=== PATIENT | male | born 1960 | race Caucasian/White ===

== ENCOUNTER 2017-01-19 21:43 | Inpatient (IN) ==
[2017-01-19 23:06] LABS: Basophils # (Auto) 0.1 K/mcL (0.0-0.3); Basophils % (Auto) 0.4 % (0.0-2.0); Eosinophils # (Auto) 0.4 K/mcL (0.0-0.7); Granulocytes % (Auto) 78.1 % (38.0-78.0); Lymphocytes % (Auto) 8.1 % (15.5-49.0); Mean Corpuscular HGB Conc 32.8 g/dL (31.0-36.0); Mean Corpuscular Hemoglobin 30.2 pg (26.0-34.0); Monocytes # (Auto) 1.3 K/mcL (0.1-0.9); Monocytes % (Auto) 10.4 % (1.0-12.0); Platelet Count 232 K/mcL (140-440); RBC 5.01 M/mcL (4.50-5.90); Red Cell Distribution Width 15.4 % (11.5-14.5)
[2017-01-19] MEDS ORDERED: VANCOMYCIN 1,000 MG in 0.9 % SODIUM CHLORIDE 250 ML IV ONE (23:09)
[2017-01-19] MEDS ORDERED: ceFAZolin 1 GM VIAL IV ONE (23:09)
[2017-01-19 23:28] LABS: ALT/SGPT 61 U/l (0-40); Albumin 3.3 gm/dL (3.2-5.2); Albumin/Globulin Ratio 0.9 (1.0-2.3); Alkaline Phosphatase 116 U/L (39-117); Blood Urea Nitrogen 16 mg/dl (6-20)
[2017-01-19] MEDS ORDERED: ACETAMINOPHEN 325 MG TABLET PO PRN (23:43)
[2017-01-19] MEDS ORDERED: ONDANSETRON 4 MG/2 ML VIAL IV PRN (23:43)
[2017-01-19] MEDS ORDERED: NALOXONE HCL 0.4 MG/ML VIAL IV PRN (23:43)
[2017-01-19] MEDS ORDERED: oxyCODONE/APAP 5/325MG TABLET PO PRN (23:43)
[2017-01-19] MEDS ORDERED: 0.9 % SODIUM CHLORIDE 1,000 ML IV SCH (23:45)
[2017-01-19] MEDS ORDERED: VANCOMYCIN PER PHARMACY IV ONE (23:47)
--- NOTE | 2017-01-19 23:50 | Emergency Department Note ---
General Adult HPI - General Chief complaint: Wound/Laceration Stated complaint: hip wound Time Seen by Provider: 01/19/17 22:02 Source: patient Mode of arrival: ambulatory Limitations: no limitations - History of Present Illness HPI Narrative: 56-year-old male comes in with purulent drainage from the scar from recent prostatic replacement on the right, burning pain at same location. He does have a prior history of cellulitis in this region that resolved with antibiotics. This episode started with him moving tires 5 days ago and accidentally hitting his right hip with a tire. Since then he's had general malaise and a fever up to 102. Some mildly loose stool. Decreased appetite but no shortness of breath - Related Data Home Medications Medication Instructions Recorded Confirmed Benazepril [Lotensin] 20 mg PO DAILY 09/05/15 01/20/17 Levothyroxine Sodium [Levoxyl] 200 mcg PO DAILY 09/05/15 01/20/17 Methocarbamol [Robaxin] 1,000 mg PO TIDP PRN 09/05/15 09/24/16 Naproxen 500 mg PO BID 09/05/15 09/24/16 Aspirin [Ecotrin] 325 mg PO DAILY 09/11/16 01/20/17 Multivitamin [Multivitamins] 1 tab PO DAILY 09/11/16 09/24/16 Vitamin D3 5,000 unit PO DAILY 09/11/16 09/24/16 Previous Rx's Medication Instructions Recorded Acetaminophen [Tylenol] 650 mg PO Q4-6HP PRN #0 tablet 09/17/15 Docusate Sodium [Colace] 100 mg PO BID capsule 09/17/15 HYDROcodone/APAP 10/325MG [[place] 1 - 2 tab PO Q4HP PRN #60 tablet 09/15/16 10/325Mg] Clindamycin HCl [Cleocin] 300 mg PO TID #30 capsule 09/24/16 Allergies Allergy/AdvReac Type Severity Reaction Status Date / Time No Known Drug Allergies Allergy Verified 01/19/17 21:49 Review of Systems All systems ED: reviewed and negative except as stated. Past Medical History - Past Medical History Attestation: Yes: The following information was validated with the patient. Medical history: Reports: hypertension, thyroid disease Surgical history ED: Reports: hip replacement, orthopedic, other (back surgery x3, cervical spine surgery) - Social History smoking status: Former smoker Physical Exam Obese male no acute distress. Normocephalic atraumatic. Conjunctiva clear sclerae anicteric. No nasal discharge or congestion. Oropharynx pink and moist. Neck supple. Heart is regular rate and rhythm no murmurs appreciated. Lungs are clear to auscultation bilaterally without wheezes rales rhonchi or respiratory distress. No pedal edema. +2 radial pulse. Exam of the right hip shows a 10 cm x 38 cm tender red area demarcated by marker, surrounding previous hip replacement scar. About one third [address] way inferior to the top of the scar there is purulent drainage oozing. I did culture this and the Q- tip went down over 8 cm deep- it did not touch the hip. There is a deep abscess there. He is able to move his knees and legs. he also has a small ecchymoses on the middle of his right buttock - General Limitations: no limitations Course Vital Signs Temperature 98.4 F 01/19/17 21:44 Pulse Rate 86 01/19/17 21:44 Respiratory Rate 26 H 01/19/17 21:44 Blood Pressure 132/73 01/19/17 21:44 Pulse Oximetry (%) 95 01/19/17 21:44 Temperature 98.4 F 01/20/17 00:38 Pulse Rate 86 01/20/17 00:38 Respiratory Rate 26 H 01/20/17 00:38 Blood Pressure 132/73 01/20/17 00:38 Pulse Oximetry (%) 95 01/20/17 00:38 Medical Decision Making - Lab Data Lab results reviewed: Yes I reviewed the patient's lab results. Result diagrams: 01/19/17 22:13 01/19/17 22:26 Lab Results 01/19/17 01/19/17 01/19/17 Range/Units 22:13 22:26 22:26 WBC 12.6 H (4.5-11.0) K/mcL RBC 5.01 (4.50-5.90) M/mcL Hgb 15.1 (13.5-16.5) g/dL Hct 46.1 (41.0-55.0) % MCV 92.0 (80.0-100.0) fL MCH 30.2 (26.0-34.0) pg MCHC 32.8 (31.0-36.0) g/dL RDW 15.4 H (11.5-14.5) % Plt Count 232 (140-440) K/mcL MPV 8.8 (7.4-10.4) fL Gran % 78.1 H (38.0-78.0) % Lymph % (Auto) 8.1 L (15.5-49.0) % [place] % (Auto) 10.4 (1.0-12.0) % Eos % (Auto) 3.0 (0.0-7.0) % Baso % (Auto) 0.4 (0.0-2.0) % Gran # 9.8 H (1.8-8.0) K/mcL Lymph # 1.0 L (1.5-4.8) K/mcL [place] # 1.3 H (0.1-0.9) K/mcL Eos # 0.4 (0.0-0.7) K/mcL Baso # 0.1 (0.0-0.3) K/mcL VBG Lactic Acid 0.9 (0.5-2.2) mmol/L Sodium 139 (133-145) mmol/L Potassium 3.4 (3.3-5.1) mmol/L Chloride 100 (96-108) mmol/L Carbon Dioxide 21 L (22-30) mmol/L Anion Gap 18.0 H (8-16) BUN 16 (6-20) mg/dl Creatinine 1.1 (0.7-1.2) mg/dl GFR Calculation 74 Glucose 112 H (70-105) mg/dL Calcium 8.6 (8.6-10.4) mg/dl Total Bilirubin 0.4 (0.0-1.0) mg/dL AST 45 H (0-37) U/l ALT 61 H (0-40) U/l Alkaline Phosphatase 116 (39-117) U/L Total Protein 7.1 (5.9-8.4) gm/dL Albumin 3.3 (3.2-5.2) gm/dL Globulin 3.8 H (2.2-3.7) gm/dL Albumin/Globulin Ratio 0.9 L (1.0-2.3) Disposition Clinical Impression: Abscess H/O total hip arthroplasty Qualifiers: Laterality: right Qualified Code(s): Z96.641 - Presence of right artificial hip joint Summary: Initially cultured and treated with antibiotics- start vancomycin and Ancef. Ordered laboratory workup and CT scan of the hip without contrast I discussed the scenario with Dr. Wolf who is on-call for Dr. Ferrera the patient's orthopedist. He agreed to accept the patient for further care and probable surgical irrigation and debridement tomorrow. He asked me to write holding orders for tonight and he would see him in the morning Patient is admitted to Dr. Wolf Disposition: Xfer As Inpt ([facility]) Condition: Good
[2017-01-20] MEDS: ceFAZolin 1 GM VIAL IV SCH ×4 (01:32→23:18)
[2017-01-20] MEDS ORDERED: VANCOMYCIN PER PHARMACY IV SCH (07:30)
[2017-01-20] MEDS: LEVOTHYROXINE 150 MCG TABLET PO SCH (07:40)
--- NOTE | 2017-01-20 08:14 | History and Physical Report ---
DATE OF ADMISSION: 01/20/2017 IDENTIFICATION: This is a 56-year-old male. CHIEF COMPLAINT: Right hip infection. HISTORY: This is a gentleman who had a total hip arthroplasty done in early August by Dr. Grey Ferrera. He apparently did well with surgical treatment, and really, the surgery was uneventful. Apparently, at about [place], he developed a low-grade infection with cellulitis. This was treated with antibiotics and resolved. He reports to have been doing very well without pain or disability until quite recently. On Saturday, he developed an acute febrile illness, and then Saturday and Saturday, developed some vague tightness in the hip. He was loading some tires from his 's car and apparently bumped the hip and felt that he had maybe just scuffed the skin. He then on Saturday, developed progressive increasing tightness, when this apparently broke open and drained a fairly abundant amount of purulent material. He presented to the emergency room complaining of increased discomfort and tightness in the hip with active drainage. PAST MEDICAL HISTORY: Hypertension and hypothyroidism. PAST SURGICAL HISTORY: He has had previous total hip arthroplasty. He has had previous cervical spine surgery and lumbar surgeries, to include a decompression and fusion. MEDICATIONS: Lotensin. Thyroid supplement. Robaxin. Daily aspirin. Vitamin D3. Multivitamin. ALLERGIES: NONE. REVIEW OF SYSTEMS: He denies any acute changes in past medical history other than this febrile illness that he had on Saturday. Other than this, he has been in a generally good state of health. FAMILY HISTORY: His family history is reviewed and does not contribute to this present problem. EXAMINATION: GENERAL: He is awake and alert. He is in no acute distress. He is generally resting comfortably. HEAD: Normocephalic, atraumatic. EYES: PERRLA, conjunctive clear. ENT: Within normal limits. HEART: Regular. LUNGS: Clear. ABDOMEN: Benign. EXTREMITIES: His right lower extremity is comfortably positioned. He does not have any excess pain with range of motion. His leg lengths are symmetric and he is neurovascularly without deficit bilaterally. He does clearly have a cellulitis surrounding the incision. There is deep erythema. There are several small focal areas along the incision line which are draining. The patient is actively afebrile. He does have a low-grade white count of 12.6. A sedimentation rate and C-reactive protein will be added to his labs. IMPRESSION: Right hip infection. This is involving a total hip arthroplasty. This clearly does need to be treated with surgical irrigation and debridement. Whether or not we need to do a 2-stage revision is still somewhat of a contreras area. The gentleman has had this prosthesis for less than six months and has had the infection for a very short period of time, less than a week. It may be reasonable to try and salvage the prosthesis with a simple irrigation and debridement. This was discussed with the patient. Will plan to proceed to the operating room. GDD:lyn Job ID: [id number] Doc ID: [id number] Humphrey Wolf MD
[2017-01-20] MEDS ORDERED: VANCOMYCIN 1,500 MG in 0.9 % SODIUM CHLORIDE 500 ML IV SCH (09:00)
[2017-01-20] MEDS: LISINOPRIL 20 MG TABLET PO SCH (09:03)
--- NOTE | 2017-01-20 09:33 | Cat Scan Report ---
CLINICAL INFORMATION: Hip abscess. History of total hip prostheses four months prior COMPARISON: Postoperative plain film from 09/14/2016 TECHNIQUE: 2.5 mm helical slices were obtained the iliac crest through the mid femoral diaphysis. Following reconstruction, sagittal, coronal axial reformatted images were processed and reviewed in bone and soft tissue window. FINDINGS: ] Prostheses is anatomically aligned without evidence of loosening or infection. There is no evidence of effusion in the right hip. There is no evidence of osteomyelitis or other significant osseous abnormality. Chronic osteitis pubis incidentally noted. There is a large (10 cm) gas containing fluid collection in the subcutaneous fat with extension into the gluteal musculature of the right hip. It is suspicious for abscess. The fluid extends to, but does not appear to involve , the the right greater trochanteric cortex IMPRESSION: Large (10 cm) fluid collection in the soft tissues over the right hip involving subcutaneous fat and gluteal musculature. Although it extends to the greater trochanteric cortex, there is no CT evidence of osteomyelitis. Suspect a large soft tissue abscess Right hip prostheses anatomically aligned without loosening or infection. Interpreted and Authenticated by: Memo Duran 01/20/17
--- NOTE | 2017-01-20 09:45 | XRay Report ---
CLINICAL INFORMATION: Right hip infection COMPARISON: CT 01/20/2017 FINDINGS: Bilateral hip prostheses are anatomically aligned without evidence of loosening or infection. Osteitis pubis noted otherwise, but no significant osseous abnormality. There is no specific evidence for osteomyelitis. The soft tissue swelling over the right hip represents an abscess described on the accompanying CT IMPRESSION: Bilateral hip prostheses are anatomically aligned. There is no evidence of septic arthritis or osteomyelitis. Soft tissue swelling over the the right greater trochanter correlates with a 10 cm soft tissue abscess - better seen on CT Interpreted and Authenticated by: Memo Duran 01/20/17
[2017-01-20] MEDS ORDERED: GENTAMICIN SULFATE 800 MG/20 ML VIAL IR ONE (09:52)
[2017-01-20] MEDS ORDERED: fentaNYL 100 MCG/2 ML VIAL IV ONE (10:19)
[2017-01-20] MEDS ORDERED: ePHEDrine 50 MG/ML AMPUL IV ONE (10:19)
[2017-01-20] MEDS ORDERED: SUCCINYLCHOLINE 20 MG/ML ML IV ONE (10:19)
[2017-01-20] MEDS ORDERED: PROPOFOL 200 MG/20 ML VIAL IV ONE (10:19)
[2017-01-20] MEDS ORDERED: DEXAMETHASONE 10 MG/ML VIAL ONE (10:19)
[2017-01-20] MEDS ORDERED: LIDOCAINE HCL/PF 100 MG/5 ML SYRINGE IV ONE (10:19)
[2017-01-20] MEDS ORDERED: ONDANSETRON 4 MG/2 ML VIAL ONE (10:19)
[2017-01-20] MEDS ORDERED: KETOROLAC 60 MG/2 ML VIAL IM ONE (10:19)
[2017-01-20] MEDS ORDERED: ROCURONIUM 10 MG/ML ML IV ONE (10:19)
[2017-01-20] MEDS ORDERED: HYDROmorphone 2 MG/ML SYRINGE ONE (10:19)
[2017-01-20] MEDS ORDERED: KETAMINE 10 MG/ML ML ONE (10:19)
[2017-01-20] MEDS ORDERED: PHENYLEPHRINE 10 MG/ML VIAL ONE (10:19)
[2017-01-20] MEDS ORDERED: MIDAZOLAM 5 MG/5 ML VIAL ONE (10:19)
[2017-01-20] MEDS ORDERED: TOBRAMYCIN SULFATE 1.2 GM VIAL TOPICAL ONE (11:02)
[2017-01-20] MEDS ORDERED: VANCOMYCIN 1 GM VIAL TOPICAL SCH (11:15)
[2017-01-20] MEDS ORDERED: HYDROmorphone 2 MG/ML SYRINGE IV PRN (11:31)
[2017-01-20] MEDS ORDERED: diphenhydrAMINE 50 MG/ML VIAL IV PRN (11:31)
[2017-01-20] MEDS ORDERED: NALOXONE HCL 0.4 MG/ML VIAL IV PRN (11:31)
[2017-01-20] MEDS ORDERED: METOCLOPRAMIDE 10 MG/2 ML VIAL IV PRN (11:31)
[2017-01-20] MEDS ORDERED: MEPERIDINE 25 MG/ML SYRINGE IV PRN (11:31)
[2017-01-20] MEDS ORDERED: FLUMAZENIL 0.1 MG/ML ML IV PRN (11:31)
[2017-01-20] MEDS ORDERED: ePHEDrine 50 MG/ML AMPUL IV PRN (11:31)
[2017-01-20] MEDS ORDERED: fentaNYL 100 MCG/2 ML VIAL IV PRN (11:31)
[2017-01-20] MEDS ORDERED: BENZOCAINE/MENTHOL 1 LOZENGE PO PRN ×2 (11:31→12:16)
[2017-01-20] MEDS ORDERED: METHOCARBAMOL 1,000 MG/10 ML VIAL IV PRN (11:31)
[2017-01-20] MEDS ORDERED: IPRATROPIUM/ALBUTEROL 3 ML AMPUL.NEB NEB PRN (11:31)
[2017-01-20] MEDS ORDERED: LACTATED RINGERS 250 ML IV PRN (11:31)
[2017-01-20] MEDS ORDERED: ONDANSETRON 4 MG/2 ML VIAL IV PRN ×2 (11:31→12:16)
[2017-01-20] MEDS ORDERED: LACTATED RINGERS 1,000 ML IV SCH (11:45)
[2017-01-20] MEDS ORDERED: TRANEXAMIC ACID 1,000 MG/10 ML VIAL IV SCH (12:16)
[2017-01-20] MEDS ORDERED: FLEETS ADULT ENEMA PR PRN (12:16)
[2017-01-20] MEDS ORDERED: MAGNESIUM HYDROXIDE 30 ML ORAL.SUSP PO PRN (12:16)
[2017-01-20] MEDS ORDERED: POLYETHYLENE GLYCOL 3350 17 GM PACKET PO PRN (12:16)
[2017-01-20] MEDS ORDERED: METHOCARBAMOL 750 MG TABLET PO PRN (12:16)
[2017-01-20] MEDS ORDERED: BISACODYL 10 MG SUPP.RECT PR PRN (12:16)
--- NOTE | 2017-01-20 12:16 | Brief Operative Note ---
Date of procedure: 01/20/17 Pre-op diagnosis: infected R VANDANA Post-op diagnosis: same Procedure: I and D with liner and head exchange Grafts/Implants: Yes (depuy) Anesthesia: GETA Findings: gross puss Complications: none Surgeon: Humphrey Wolf Hand Funnel Coater: Javid Zhao Estimated blood loss (cc): 300 Specimens Removed/Pathology: other Condition: stable Disposition: PACU
[2017-01-20] MEDS ORDERED: GENTAMICIN PER PHARMACY IV SCH (12:33)
[2017-01-20] MEDS: GENTAMICIN SULFATE IV SCH (14:05)
[2017-01-20] MEDS: SODIUM CHLORIDE 0.9% IV SCH (14:05)
[2017-01-20] MEDS: WARFARIN 5 MG TABLET PO SCH (15:10)
[2017-01-20] MEDS: 0.45 % SODIUM CHLORIDE 1,000 ML IV SCH ×2 (15:11→23:26)
[2017-01-20] MEDS: 0.9 % SODIUM CHLORIDE 10 ML SYRINGE IV SCH ×2 (15:11→23:26)
[2017-01-20] MEDS: DOCUSATE SODIUM 100 MG CAPSULE PO SCH (23:17)
[2017-01-20] MEDS: SENNOSIDES 1 TABLET PO SCH (23:17)
[2017-01-20] MEDS: VANCOMYCIN 1,500 MG in 0.9 % SODIUM CHLORIDE 500 ML IV SCH (23:26)
[2017-01-21] MEDS: 0.45 % SODIUM CHLORIDE 1,000 ML IV SCH ×3 (06:35→22:58)
[2017-01-21] MEDS: 0.9 % SODIUM CHLORIDE 10 ML SYRINGE IV SCH ×3 (06:36→22:18)
--- NOTE | 2017-01-21 07:06 | Orthopedic Progress Note ---
Subjective Patient information: Note initiated : 01/21/17 at 7:05 am Service Date, if different from initiated Date: [] Patient: Naveed Luis 56 y/o M admitted on 01/20/17 for hip wound. Chief Complaint: [] No complaints Objective Vital signs: Vital Signs Temp Pulse Resp BP BP BP Pulse Ox 01/21/17 04:00 97.1 F L 49 L 16 96/52 96 01/21/17 00:57 92 01/21/17 00:00 96.7 F L 54 L 20 100/64 97 01/20/17 20:00 96 01/20/17 19:44 97.5 F L 71 20 103/63 91 01/20/17 17:05 95 01/20/17 16:55 96 01/20/17 16:08 110/77 93 01/20/17 15:20 95 01/20/17 15:05 121/77 94 01/20/17 14:35 99/69 90 01/20/17 14:05 97/64 93 01/20/17 13:50 104/70 90 01/20/17 13:35 101/64 94 01/20/17 13:30 98.0 F 78 18 110/63 93 01/20/17 13:15 75 16 113/65 93 01/20/17 13:00 80 20 118/73 92 01/20/17 12:45 97.9 F 87 14 104/73 95 01/20/17 12:00 96.5 F L 16 101/64 94 Intake and Output 01/20/17 01/21/17 01/21/17 21:59 05:59 13:59 Intake Total 460 / 460 1700 / 1700 Output Total 490 / 490 825 / 825 Balance -30 / -30 875 / 875 Intake: IV 1000 / 1000 Sodium Chloride 0.45% 1, 1000 / 1000 000 ml @ 125 mls/hr IV . Q8H [facility] Rx#:[id number] Oral 460 / 460 700 / 700 Output: Drainage 90 / 90 125 / 125 Right Hip 90 / 90 60 / 60 right hip #1 5 / 5 right hip #2 20 / 20 right hip #3 40 / 40 Void Amount 400 / 400 700 / 700 Other: Meal Dinner Percent of Meal Consumed 100% Feeding Ability Independent Weight 340 lb Intake & Output: Intake & Output 01/20/17 01/21/17 01/21/17 21:59 05:59 13:59 Intake Total 460 / 460 1700 / 1700 Output Total 490 / 490 825 / 825 Balance -30 / -30 875 / 875 Weight 340 lb Intake: IV 1000 / 1000 Sodium Chloride 0.45% 1, 1000 / 1000 000 ml @ 125 mls/hr IV . Q8H [facility] Rx#:[id number] Oral 460 / 460 700 / 700 Output: Drainage 90 / 90 125 / 125 Right Hip 90 / 90 60 / 60 right hip #1 5 / 5 right hip #2 20 / 20 right hip #3 40 / 40 Void Amount 400 / 400 700 / 700 Other: Meal Dinner Percent of Meal Consumed 100% Feeding Ability Independent Dressing: Yes clean, Yes intact Weight bearing status: full - Labs CBC & BMP: 01/21/17 05:00 01/19/17 22:26 Labs: Orthopedic Labs 01/21/17 05:00 PT 15.5 H INR 1.2 H 01/21/17 05:00 Hgb 13.6 Hct 41.6 Assessment and Plan (1) Wound infection awaiting culture and sensitivity. mobilize Status: Acute
[2017-01-21] MEDS: ceFAZolin 1 GM VIAL IV SCH ×2 (07:38→15:55)
[2017-01-21] MEDS: DOCUSATE SODIUM 100 MG CAPSULE PO SCH ×2 (09:19→22:18)
[2017-01-21] MEDS: LEVOTHYROXINE 75 MCG TABLET PO SCH (09:19)
[2017-01-21] MEDS: LEVOTHYROXINE 100 MCG TABLET PO SCH (09:20)
--- NOTE | 2017-01-21 09:27 | Operative Note ---
DATE OF OPERATION: 01/20/2017 PREOPERATIVE DIAGNOSIS: Infected right total hip arthroplasty. POSTOPERATIVE DIAGNOSIS: Infected right total hip arthroplasty. OPERATION PROPOSED: Irrigation and debridement with liner exchange and exchange of the femoral head. OPERATION PERFORMED: Irrigation and debridement with liner exchange and exchange of the femoral head. OPERATING SURGEON: Humphrey Wolf MD TELEGRAPHIC INSTRUMENT SUPERVISOR: Javid Zhao PA-C. INDICATIONS: This is a gentleman, 56 years old who has an infected right total hip arthroplasty. It does seem that this has only been going on for a short period of time. We have elected to proceed with an irrigation and debridement and exchange of the liner and the head ball. OPERATION IN DETAIL: Informed consent was obtained. He was taken to the operating and was prepped anesthetic and prophylactic antibiotics. I did open his previous incision. Extensive irrigation and debridement was performed. I then opened the iliotibial band and there was a marked amount of fluid retained beneath this. It was not quite as contaminated appearing as the superficial material. I extensively irrigated thoroughly and debrided of soft tissues, debrided scar from this wound and then removed the femoral head. The acetabular component was exposed. I debrided soft tissues from around the acetabular component and I then removed the acetabular liner. I extensively lavaged and I then removed the central screw. I curetted each of the screw holes and irrigated additionally. I used additional IrriSept irrigation as well. I exchanged the liner and head ball. This was reduced into place. I closed the iliotibial band over 2 drains with a monofilament suture. A drain was placed in the subcutaneous fat. I closed with a 2-0 inverted and anatoliy. The procedure was tolerated well. No complications. Estimated blood loss is about 300 mL. GDD:sp Job ID: [id number] Doc ID: [id number] Humphrey Wolf MD
[2017-01-21] MEDS: LISINOPRIL 20 MG TABLET PO SCH (09:28)
[2017-01-21] MEDS ORDERED: 0.9 % SODIUM CHLORIDE 10 ML SYRINGE IV PRN (09:51)
[2017-01-21] MEDS: LEVOTHYROXINE 150 MCG TABLET PO SCH (09:55)
[2017-01-21] MEDS: VANCOMYCIN 1,500 MG in 0.9 % SODIUM CHLORIDE 500 ML IV SCH (09:55)
[2017-01-21] MEDS: WARFARIN 5 MG TABLET PO SCH (14:21)
[2017-01-21] MEDS: GENTAMICIN SULFATE IV SCH (16:03)
[2017-01-21] MEDS: SODIUM CHLORIDE 0.9% IV SCH (16:03)
[2017-01-21] MEDS: SENNOSIDES 1 TABLET PO SCH (22:18)
[2017-01-22] MEDS: ceFAZolin 1 GM VIAL IV SCH ×4 (00:36→23:57)
[2017-01-22] MEDS: 0.9 % SODIUM CHLORIDE 10 ML SYRINGE IV SCH ×3 (06:42→23:58)
[2017-01-22] MEDS: 0.45 % SODIUM CHLORIDE 1,000 ML IV SCH ×3 (06:42→22:26)
[2017-01-22] MEDS: LEVOTHYROXINE 100 MCG TABLET PO SCH (07:10)
[2017-01-22] MEDS: LEVOTHYROXINE 75 MCG TABLET PO SCH (07:11)
--- NOTE | 2017-01-22 07:14 | Orthopedic Progress Note ---
Subjective Patient information: Note initiated : 01/22/17 at 7:12 am Service Date, if different from initiated Date: [] Patient: Naveed Luis 56 y/o M admitted on 01/20/17 for Hip Wound/Right Hip Fracture. Chief Complaint: [S/P I&D of right hip wound] Patient reports that he is doing well and has been able to ambulate w/o difficulty. Denies any lower ext weakness, calf tenderness, or SOA. Objective Vital signs: Vital Signs Temp Pulse Pulse Resp BP Pulse Ox 01/22/17 07:06 95 01/22/17 03:16 98.0 F 61 22 125/77 90 01/21/17 23:21 97.8 F 67 22 136/79 94 01/21/17 20:00 98.2 F 67 22 128/72 95 01/21/17 15:49 97.4 F L 62 14 101/67 95 01/21/17 11:36 97.3 F L 62 16 102/64 97 01/21/17 08:00 97.4 F L 61 16 96/61 95 01/21/17 07:21 51 L 12 97 01/21/17 07:20 97 Intake and Output 01/21/17 01/22/17 01/22/17 21:59 05:59 13:59 Intake Total 1590 / 1590 800 / 800 Output Total 1805 / 1805 1898 / 1898 Balance -215 / -215 -1098 / -1098 Intake: IV 1000 / 1000 Sodium Chloride 0.45% 1, 1000 / 1000 000 ml @ 125 mls/hr IV . Q8H [facility] Rx#:[id number] Oral 590 / 590 800 / 800 Output: Drainage 80 / 80 right hip #1 0 / 0 right hip #2 52 / 52 right hip #3 3 / 3 3 / 3 Void Amount 1725 / 1725 1875 / 1875 Other: Meal Dinner Percent of Meal Consumed 100% # Voids 1 # Bowel Movements 1 Weight 341 lb Intake & Output: Intake & Output 01/21/17 01/22/17 01/22/17 21:59 05:59 13:59 Intake Total 1590 / 1590 800 / 800 Output Total 1805 / 1805 1898 / 1898 Balance -215 / -215 -1098 / -1098 Weight 341 lb Intake: IV 1000 / 1000 Sodium Chloride 0.45% 1, 1000 / 1000 000 ml @ 125 mls/hr IV . Q8H [facility] Rx#:[id number] Oral 590 / 590 800 / 800 Output: Drainage 80 / 80 right hip #1 0 / 0 right hip #2 52 / 52 / 20 right hip #3 3 / 3 / Void Amount 1725 / 1725 1875 / 1875 Other: Meal Dinner Percent of Meal Consumed 100% # Voids 1 # Bowel Movements 1 Incision: Yes clean and dry Incision clean and dry: Yes Dressing: Yes clean, Yes dry, Yes intact Weight bearing status: full Neurological exam IM: Yes motor sensory intact, Yes neurovascular intact Extremities exam IM: Yes calf tenderness (Negative), Yes Bentley's sign (Negative bilat) - Labs CBC & BMP: 01/22/17 04:13 01/19/17 22:26 Labs: Orthopedic Labs 01/22/17 01/21/17 04:13 05:00 PT 16.9 H 15.5 H INR 1.3 H 1.2 H 01/22/17 01/21/17 04:13 05:00 Hgb 13.7 13.6 Hct 41.6 41.6 Assessment and Plan (1) Wound infection May ambulate as tolerated. Continue abx. PICC line to be placed today. Awaiting C&S of wound. May d/c drains tomorrow AM. Status: Acute
[2017-01-22 09:07] LABS: Vancomycin,Trough 10.6 ug/ml (5.0-15.0)
[2017-01-22] MEDS: DOCUSATE SODIUM 100 MG CAPSULE PO SCH ×2 (09:19→22:26)
[2017-01-22] MEDS: LISINOPRIL 20 MG TABLET PO SCH (09:19)
--- NOTE | 2017-01-22 09:33 | XRay Report ---
HISTORY: Reason for Exam:picc placement FINDINGS: PICC line has been placed through the right arm. The tip is in the region of the superior vena cava. No pneumothorax or pleural effusion are present. The lungs are clear. The heart size is normal. IMPRESSION: Normal chest and no complication following insertion of a PICC line Interpreted and Authenticated by: Seven Payton 01/22/17
[2017-01-22] MEDS: VANCOMYCIN 1,500 MG in 0.9 % SODIUM CHLORIDE 500 ML IV SCH (10:05)
[2017-01-22] MEDS ORDERED: GENTAMICIN SULFATE IV SCH (12:00)
[2017-01-22] MEDS ORDERED: SODIUM CHLORIDE 0.9% IV SCH (12:00)
[2017-01-22] MEDS: WARFARIN 5 MG TABLET PO SCH (13:31)
[2017-01-22] MEDS: SENNOSIDES 1 TABLET PO SCH (22:26)
[2017-01-23] MEDS: 0.45 % SODIUM CHLORIDE 1,000 ML IV SCH (03:56)
[2017-01-23 06:28] LABS: Basophils # (Auto) 0 K/mcL (0.0-0.3); Basophils % (Auto) 0.4 % (0.0-2.0); Eosinophils # (Auto) 0.3 K/mcL (0.0-0.7); Eosinophils % (Auto) 2.6 % (0.0-7.0); Granulocytes % (Auto) 76.9 % (38.0-78.0); Lymphocytes # (Auto) 1.3 K/mcL (1.5-4.8); Mean Cell Volume 92.5 fL (80.0-100.0); Mean Corpuscular HGB Conc 32.7 g/dL (31.0-36.0); Mean Corpuscular Hemoglobin 30.2 pg (26.0-34.0); Monocytes # (Auto) 0.9 K/mcL (0.1-0.9); Monocytes % (Auto) 8.1 % (1.0-12.0); Platelet Count 367 K/mcL (140-440); Red Cell Distribution Width 15.8 % (11.5-14.5)
[2017-01-23] MEDS: ceFAZolin 1 GM VIAL IV SCH (07:36)
[2017-01-23] MEDS: LEVOTHYROXINE 100 MCG TABLET PO SCH (07:36)
[2017-01-23] MEDS: LEVOTHYROXINE 75 MCG TABLET PO SCH (07:36)
[2017-01-23] MEDS: 0.9 % SODIUM CHLORIDE 10 ML SYRINGE IV SCH ×2 (07:45→14:43)
--- NOTE | 2017-01-23 07:55 | Orthopedic Progress Note ---
Subjective Patient information: Note initiated : 01/23/17 at 7:54 am Service Date, if different from initiated Date: [] Patient: Naveed Luis 56 y/o M admitted on 01/20/17 for Hip Wound/Right Hip Fracture. Chief Complaint: [] Interval history: doing well. no pain Objective Vital signs: Vital Signs Temp Pulse Resp BP Pulse Ox 01/23/17 07:33 94 01/23/17 04:00 97.9 F 65 22 143/78 94 01/23/17 00:00 98.4 F 66 20 131/82 94 01/22/17 19:00 98.2 F 76 22 146/74 93 01/22/17 15:23 97.6 F 67 22 134/89 94 01/22/17 12:00 98.8 F 76 16 114/75 94 Intake and Output 01/22/17 01/23/17 01/23/17 21:59 05:59 13:59 Intake Total 1790 / 1790 350 / 350 Output Total 1795 / 1795 1792 / 1792 Balance -5 / -5 -1442 / -1442 Intake: Oral 1790 / 1790 350 / 350 Output: Drainage 185 / 185 42 / 42 right hip #1 55 / 55 2 / 2 right hip #2 130 / 130 40 / 40 right hip #3 0 / 0 0 / 0 Void Amount 1610 / 1610 1750 / 1750 Other: Meal Dinner Percent of Meal Consumed 100% Feeding Ability Independent Weight 329 lb 6.4 oz Intake & Output: Intake & Output 01/22/17 01/23/17 01/23/17 21:59 05:59 13:59 Intake Total 1790 / 1790 350 / 350 Output Total 1795 / 1795 1792 / 1792 Balance -5 / -5 -1442 / -1442 Weight 329 lb 6.4 oz Intake: Oral 1790 / 1790 350 / 350 Output: Drainage 185 / 185 42 / 42 right hip #1 55 / 55 2 / 2 right hip #2 130 / 130 40 / 40 right hip #3 0 / 0 0 / 0 Void Amount 1610 / 1610 1750 / 1750 Other: Meal Dinner Percent of Meal Consumed 100% Feeding Ability Independent Incision: Yes healing, Yes clean and dry Incision clean and dry: Yes Dressing: Yes clean, Yes dry, Yes intact Weight bearing status: full Neurological exam IM: Yes alert, Yes normal gait, Yes oriented X3, Yes neurovascular intact Extremities exam IM: No calf tenderness, Yes Foot pink and warm - Labs CBC & BMP: 01/23/17 04:50 01/19/17 22:26 Labs: Orthopedic Labs 01/23/17 01/22/17 01/21/17 04:50 04:13 05:00 PT 19.7 H 16.9 H 15.5 H INR 1.6 H 1.3 H 1.2 H 01/23/17 01/22/17 01/21/17 04:50 04:13 05:00 Hgb 13.9 13.7 13.6 Hct 42.5 41.6 41.6 Assessment and Plan (1) H/O total hip arthroplasty s/p i and d wbat iv abx x 6 weeks f/u in 2 weeks in office Status: Acute Qualifiers: Laterality: right Qualified Code(s): Z96.641 - Presence of right artificial hip joint
--- NOTE | 2017-01-23 07:58 | Discharge Summary ---
Ortho Discharge - VANDANA - Patient Instructions Diet: Regular Diet Activity: activity as tolerated, weight bearing as tolerated Total Hip Protocol: Follow activity instructions as provided by Physical Therapy. Dressing Care: May shower in 2 days - Problem Maintenance (1) H/O total hip arthroplasty Status: Acute Qualifiers: Laterality: right Qualified Code(s): Z96.641 - Presence of right artificial hip joint - Follow Up Plan Follow Up Appointments: Karo Andres MD [Primary Care Provider] - Disposition: Home, Self-Care Prognosis: Good Rehab Potential: Good I certify that the patient requires SNF services: No Overall status at discharge: patient is progressing back to baseline - Orders For Discharge Prescriptions: Vancomycin HCl in Dextrose 5 % [Vancomycin 1.5 Gram/250 ml-D5w] 1.5 gm IV DAILY #42 plast..bag
[2017-01-23] MEDS: LISINOPRIL 20 MG TABLET PO SCH (08:34)
[2017-01-23] MEDS: DOCUSATE SODIUM 100 MG CAPSULE PO SCH (08:35)
[2017-01-23] MEDS: VANCOMYCIN 1,500 MG in 0.9 % SODIUM CHLORIDE 500 ML IV SCH (10:04)
[2017-01-23] MEDS: WARFARIN 5 MG TABLET PO SCH (14:43)
== END 2017-01-23 14:50 | disposition home or self-care (01) | DRG 464 ==
LOC: ED 21:43 → MEDSUR 01-20 00:15
PROVIDERS: ADMIT Orthopaedic Surgery Orthopaedic Surgery of the Spine; ATTEND Orthopaedic Surgery Orthopaedic Surgery of the Spine